=== PATIENT | male | born 1965 | race Two or more races ===

== ENCOUNTER 2024-06-11 09:22 | Emergency (ER) | payer OTHER ==
[~2024-06-11] VITALS: Ht 175.3 cm; Wt 83.0 kg
[2024-06-11] MEDS ORDERED: LOSARTAN POTASSI1 GM (09:56)
[2024-06-11] MEDS ORDERED: TOPROL XL50 M1 (09:57)
[2024-06-11] MEDS ORDERED: ELIQUIS5 MG (09:57)
[2024-06-11 14:39] LABS: HEMATOCRIT 45.6 % (39.0-48.0); HEMOGLOBIN 15.1 g/dL (13-16.00); MEAN CELL VOLUME 92.1 fL (80.0-100.00); MEAN CORPUSCULAR HEMOGLOBIN 30.5 pg (27.00-32.0); MEAN CORPUSCULAR HGB CONC 33.1 g/dl (32.0-36.0); PLATELET COUNT 228 K/uL (150-450); RED BLOOD COUNT 4.95 M/uL (4.00-6.00); RED CELL DISTRIBUTION WIDTH 15.9 % (11.5-14.5)
[2024-06-11 15:00] LABS: INR 1.03; PARTIAL THROMBOPLASTIN TIME 29.5 SECONDS (22.0-34.0); PROTHROMBIN TIME 11.2 SECONDS (9.0-11.5)
[2024-06-11 15:05] LABS: CALCIUM 9.5 mg/dL (8.5-10.1); CREATININE SERUM 0.92 mg/dL (0.70-1.30); GFR 84.2; POTASSIUM 3.81 mEq/L (3.5-5.1)
[2024-06-11] MEDS ORDERED: KETOROLAC TROMETHAMINE 30 MG VIAL IM ONE (16:15)
== END 2024-06-11 16:24 | disposition home or self-care (01) ==
LOC: ER 09:24
PROVIDERS: Emergency Medicine
DX: R07.9 Chest pain, unspecified (principal); I49.8 Other specified cardiac arrhythmias